=== PATIENT | female | born 1950 | race Caucasian/White ===

== ENCOUNTER 2019-05-15 13:19 | Day surgery (SDC) | payer OTHER ==
[2019-05-14 11:51] VITALS: BMI 34.2
[2019-05-15] MEDS ORDERED: BUPIVACAINE HCL/PF 0.5% (5 MG/ML) 30 ML VIAL IJ ONE (14:57)
[2019-05-15] MEDS ORDERED: MIDAZOLAM HCL 2 MG/2 ML SINGLE DOSE VIAL ONE (14:57)
[2019-05-15] MEDS ORDERED: LIDOCAINE HCL 1%, 10 MG/ML (20ML VIAL) ONE (15:38)
[2019-05-15] MEDS ORDERED: ceFAZolin SODIUM 1 GM VIAL ONE (15:57)
[2019-05-15] MEDS ORDERED: ONDANSETRON 4 MG/2 ML VIAL IVPUSH PRN (16:03)
[2019-05-15] MEDS ORDERED: oxyCODONE HCL 5 MG TABLET PO PRN ×2 (16:03)
[2019-05-15] MEDS ORDERED: LIDOCAINE HCL 1%, 10 MG/ML (20ML VIAL) INF ONE (16:04)
[2019-05-15] MEDS ORDERED: LACTATED RINGERS SOLUTION 1,000 ML IV SCH (16:15)
[2019-05-15] MEDS ORDERED: ACETAMINOPHEN 1000 MG/100 ML VIAL (NON FORMULARY) IVPB ONE (17:00)
[2019-05-15] MEDS ORDERED: ACETAMINOPHEN INJECTION 100 ML IVPB ONE (17:32)
[2019-05-15 18:05] VITALS: TEMP 98.1
[2019-05-15 18:39] VITALS: BP 124/60; PULSE 92
--- NOTE | 2019-05-21 13:45 | OP ---
DATE OF OPERATION: 05/15/2019 PREOPERATIVE DIAGNOSIS: Left distal radius fracture, comminuted, intra-articular displaced. POSTOPERATIVE DIAGNOSIS: Left distal radius fracture, comminuted, intra-articular displaced. OPERATIVE PROCEDURE: 1. Open reduction and internal fixation of left comminuted, intra-articular displaced distal radius fracture with internal fixation of three more fragments. 2. Left brachioradialis tenotomy. SURGEON: Lexie Landin MD BANKRUPTCY ATTORNEY: ARGENIS Moura ANESTHESIA: Regional. COMPLICATIONS: None. ESTIMATED BLOOD LOSS: Minimal. INDICATIONS FOR PROCEDURE: The patient is a 68-year-old female with the above finding, indicated for operative treatment. Risks, benefits, and alternatives were discussed with the patient at length. Proper informed consent was obtained. PROCEDURE: After proper identification of patient and correct operative site, patient was brought to the operating room and placed supine on the operating room table. All bony prominences were well padded. Regional anesthesia had been given and was adequate for procedure. Left upper extremity was prepped and draped in the usual sterile fashion. Intravenous antibiotics were given. A timeout procedure was performed. Esmarch bandage used to exsanguinate left upper extremity. Tourniquet was inflated to 250 mmHg. Longitudinal incision was made over the flexor carpi radialis tendon. Incision was taken sharply through skin with blunt and sharp dissection through the subcutaneous tissues. Flexor carpi radialis tendon along with the contents in the carpal canal were bluntly and gently retracted in an ulnarward direction for the remainder of the procedure. Pronator quadratus was found to be ruptured and was divided and elevated off the distal radius. A very highly comminuted fracture with multiple fragments of volar cortex comminuted, including multiple large radial styloid fragments were visualized. Attempt at reduction was performed; however, the brachialis made this not possible. Therefore, a brachialis tenotomy was performed in a subperiosteal fashion. The fracture was then able to be reduced in a satisfactory position and held with an Acumed Acu-Loc screw, distal radius plate with distal locking screws and proximal non-locking screws. This provided a secure, stable fixation of the fracture. Distal radial noted no instability. Wound was irrigated and repaired in layers using 4-0 Vicryl and 4-0 Monocryl sutures. Steri-Strips, sterile dressings and a volar wrist splint were placed. Patient reversed from anesthesia and brought to recovery room in stable condition. Kenroy Choi, the title i instructional assistant, was integral throughout the procedure. Procedure could not have been performed without a skilled operative title i instructional assistant. LEXIE LANDIN M.D. ALLEN/[id number]
== END 2019-05-15 18:35 | disposition home or self-care (01) ==
LOC: FASU 13:19
PROVIDERS: ATTEND Orthopaedic Surgery Hand Surgery
PROC: 0LN60ZZ Release Left Lower Arm and Wrist Tendon, Open Approach (ICD-10-PCS; 2019-05-15)
PROC: 0PSJ04Z Reposition Left Radius with Internal Fixation Device, Open Approach (ICD-10-PCS; principal; 2019-05-15 14:30)
DX: S52.532A Colles' fracture of left radius, initial encounter for closed fracture (principal); X58.XXXA Exposure to other specified factors, initial encounter; Y93.9 Activity, unspecified; Y92.9 Unspecified place or not applicable
CPT/HCPCS: 25290; 25609; C1713; 73110-TC-LT-FY; 82962; 94760; J0131